=== PATIENT | female | born 1985 | race Caucasian/White ===

== ENCOUNTER 2016-05-18 17:09 | Emergency (ER) | payer SELFPAY ==
[~2016-05-18] VITALS: Ht 165.1 cm; Wt 95.3 kg
[~2016-05-18 17:09] MED LIST: ALPR1TAB2 PO; CETI10TA22 PO; FLUT16SP NS; LEVO500T38 PO; PANT40TA3 PO
[2016-05-18 17:40] VITALS: BP 107/68
--- NOTE | 2016-05-18 18:00 | PHYS DOC ---
Past Medical History Past Medical History: Asthma, GERD Additional Past Medical Histor: PALPITATIONS Past Surgical History: Tubal ligation Alcohol Use: None Drug Use: None Adult General Chief Complaint Chief Complaint: NAUSEA/VOMITING/DIARRHA HPI HPI Patient is a 31 year old female presents with cough, congestion, bodyaches, fever since last night. reports fever to 101.2. States she was sick with similar symptoms on 05/09 but symptoms resolved and returned last night. Denies shortness of air, chest pain. Review of Systems Review of Systems Constitutional: Fever last night Eyes: Denies change in visual acuity, redness, or eye pain HENT: Congestion and sore throat Respiratory: Denies shortness of breath. COugh Cardiovascular: No additional information not addressed in HPI [] GI: Denies abdominal pain, nausea, vomiting, bloody stools or diarrhea [] : Denies dysuria or hematuria [] Musculoskeletal: Denies back pain or joint pain [] Integument: Denies rash or skin lesions [] Neurologic: Denies headache, focal weakness or sensory changes [] Endocrine: Denies polyuria or polydipsia [] Allergies Allergies Allergies Coded Allergies Type Severity Reaction Last Updated Verified Sulfa (Sulfonamide Antibiotics) Allergy Severe ELEVATED HEARTRATE 02/07/14 No amoxicillin Allergy Intermediate RASH 02/07/14 No Physical Exam Physical Exam Constitutional: Well developed, well nourished, no acute distress, non-toxic appearance. Cough on exam HENT: Normocephalic, atraumatic, bilateral external ears normal, oropharynx moist, no oral exudates. Biateral nasal drainage and oropharnyx exudate Eyes: PERRLA, EOMI, conjunctiva normal, no discharge. Neck: Normal range of motion, no tenderness, supple, no stridor. Cardiovascular:Heart rate regular rhythm, no murmur Lungs & Thorax: Bilateral breath sounds clear to auscultation Abdomen: Bowel sounds normal, soft, no tenderness, no masses, no pulsatile masses. Skin: Warm, dry, no erythema, no rash. Back: No tenderness, no CVA tenderness. [] Extremities: No tenderness, no cyanosis, no clubbing, ROM intact, no edema. [] Neurologic: Alert and oriented X 3, normal motor function, normal sensory function, no focal deficits noted. [] Psychologic: Affect normal, judgement normal, mood normal. [] Current Patient Data Vital Signs Vital Signs Date Time Temp Pulse Resp B/P Pulse Ox O2 Delivery O2 Flow Rate FiO2 05/18/16 17:40 98.2 73 20 96 Room Air 98.2 Lab Values Laboratory Tests Test 05/18/16 18:10 Influenza Type A Antigen Negative (NEGATIVE) Influenza Type B Antigen Negative (NEGATIVE) EKG EKG [] Radiology/Procedures Radiology/Procedures [] Impressions: 1. Viral illness Course & Med Decision Making Course & Med Decision Making Pertinent Labs and Imaging studies reviewed. (See chart for details) [] Dragon Disclaimer Dragon Disclaimer This electronic medical record was generated, in whole or in part, using a voice recognition dictation system. Departure Departure Impression: Primary Impression: Viral illness Disposition: HOME, SELF-CARE Condition: STABLE Referrals: UNKNOWN PCP NAME (PCP) Patient Instructions: Viral Infections, [id number] Additional Instructions: 1. Take medication as directed 2. Follow up with primary in 1-2 days 3. Return if problems or concerns Scripts D-Methorphan Hb/Prometh Hcl (Promethazine-Dm Syrup)118 Ml Syrup5 Ml PO PRN Q6HRS PRN COUGH #120 ML Causes drowsiness, use with caution. Do not drink alcohol, drive or operate machinery Prov:NU EUBANKS APRN 05/18/16 Guaifenesin (Mucinex)600 Mg Tablet.er1 Tab PO BID #20 TAB Prov:NU EUBANKS APRN 05/18/16 NU EUBANKS APRN May 18, 2016 18:00
[2016-05-18 18:33] LABS: OBC FLU VALID
[2016-05-18] MEDS ORDERED: GUAI600T38 PO (18:51)
[2016-05-18] MEDS ORDERED: D-ME118S2 PO (18:51)
--- NOTE | 2016-05-19 07:28 | RAD ---
EXAM: Chest, 2 views. HISTORY: Cough. COMPARISON: 10/30/2014. FINDINGS: Frontal and lateral views of the chest are obtained. There is no infiltrate, effusion or pneumothorax. The heart is normal in size. IMPRESSION: 1. No acute pulmonary finding. 2. Note is made that a subcentimeter nodule within the right lower lobe demonstrated on a CT dated 08/14/2014 is not seen radiographically.
== END 2016-05-18 18:56 | disposition home or self-care (01) ==
LOC: ER 17:09
DX: B34.9 Viral infection, unspecified (principal); R05 Cough; J45.909 Unspecified asthma, uncomplicated; K21.9 Gastro-esophageal reflux disease without esophagitis; Z88.1 Allergy status to other antibiotic agents; Z88.2 Allergy status to sulfonamides
CPT/HCPCS: 71020; 87804; 99285

== ENCOUNTER 2017-01-07 22:37 | Emergency (ER) | payer SELFPAY ==
[~2017-01-07] VITALS: Ht 167.6 cm; Wt 87.1 kg
[~2017-01-07 22:37] MED LIST changes: +D-ME118S2 PO; +GUAI600T47 PO; -LEVO500T38 PO; +LEVO500T59 PO; +PRED50TA PO; +PROAIR HFA8.5 GM INH
--- NOTE | 2017-01-07 22:55 | PHYS DOC ---
Past Medical History Past Medical History: Asthma, Bronchitis, GERD Additional Past Medical Histor: PALPITATIONS Past Surgical History: Tubal ligation, Other Additional Past Surgical Histo: ORAL SX Alcohol Use: None Drug Use: None Adult General Chief Complaint Chief Complaint: Congestion HPI HPI Patient is a 31 year old female presents to the emergency department with a 24- hour history of upper respiratory symptoms. And children have the same symptoms. She reports no fever. Really taking foods and fluids, no vomiting, no diarrhea. Nonproductive cough. Patient has been using her albuterol inhaler for management of symptoms Review of Systems Review of Systems Constitutional: Denies fever or chills [] Eyes: Denies change in visual acuity, redness, or eye pain [] HENT: Nasal congestion, bilateral ear pain Respiratory: Cough] Cardiovascular: No additional information not addressed in HPI [] GI: Denies abdominal pain, nausea, vomiting, bloody stools or diarrhea [] : Denies dysuria or hematuria [] Musculoskeletal: Denies back pain or joint pain [] Integument: Denies rash or skin lesions [] Neurologic: Denies headache, focal weakness or sensory changes [] Endocrine: Denies polyuria or polydipsia [] Allergies Allergies Allergies Coded Allergies Type Severity Reaction Last Updated Verified Sulfa (Sulfonamide Antibiotics) Allergy Severe ELEVATED HEARTRATE 02/07/14 No amoxicillin Allergy Intermediate RASH 02/07/14 No Physical Exam Physical Exam Constitutional: Well developed, well nourished, no acute distress, non-toxic appearance. [] HENT: Normocephalic, atraumatic, bilateral external ears normal, oropharynx moist, no oral exudates, nose normal. [] Eyes: PERRLA, EOMI, conjunctiva normal, no discharge. [] Neck: Normal range of motion, no tenderness, supple, no stridor. [] Cardiovascular:Heart rate regular rhythm, no murmur [] Lungs & Thorax: Mild inspiratory wheezing Abdomen: Bowel sounds normal, soft, no tenderness, no masses, no pulsatile masses. [] Skin: Warm, dry, no erythema, no rash. [] Back: No tenderness, no CVA tenderness. [] Extremities: No tenderness, no cyanosis, no clubbing, ROM intact, no edema. [] Neurologic: Alert and oriented X 3, normal motor function, normal sensory function, no focal deficits noted. [] Psychologic: Affect normal, judgement normal, mood normal. [] Current Patient Data Vital Signs Vital Signs Date Time Temp Pulse Resp B/P (MAP) Pulse Ox O2 Delivery O2 Flow Rate FiO2 01/07/17 22:56 98.0 82 18 99 Room Air 98.0 EKG EKG [] Radiology/Procedures Radiology/Procedures [] Course & Med Decision Making Course & Med Decision Making Pertinent Labs and Imaging studies reviewed. (See chart for details) [] Dragon Disclaimer Dragon Disclaimer This electronic medical record was generated, in whole or in part, using a voice recognition dictation system. Departure Departure Impression: Primary Impression: Upper respiratory infection Disposition: HOME, SELF-CARE Condition: STABLE Referrals: SILVESTRE SCHULTZ MD (PCP) Patient Instructions: Upper Respiratory Infection, Adult Scripts Prednisone (PREDNISONE) 20 Mg Tablet 1 TAB PO DAILY, #5 TAB Prov: PRISCILLA CASTRO APRN 01/07/17 Albuterol Sulfate (PROAIR HFA INHALER) 8.5 Gm Hfa.aer.ad 1 PUFF INH PRN Q6HRS Y for SHORTNESS OF BREATH, #1 INHALER 0 Refills Prov: PRISCILLA CASTRO APRN 01/07/17 D-Methorphan Hb/Prometh Hcl (PROMETHAZINE-DM SYRUP) 118 Ml Syrup 5 ML PO PRN Q6HRS Y for COUGH, #120 ML Causes drowsiness, use with caution. Do not drink alcohol, drive or operate machinery Prov: PRISCILLA CASTRO APRN 01/07/17 Problem Qualifiers Primary Impression: Upper respiratory infection URI type: unspecified viral URI Qualified Codes: J06.9 - Acute upper respiratory infection, unspecified; B97.89 - Other viral agents as the cause of diseases classified elsewhere PRISCILLA CASTRO APRN Jan 07, 2017 22:55
[2017-01-07 22:56] VITALS: BP 123/74
[2017-01-07] MEDS ORDERED: D-ME118S2 PO (23:04)
[2017-01-07] MEDS ORDERED: PROAIR HFA8.5 GM INH (23:04)
[2017-01-07] MEDS ORDERED: PRED20TA PO (23:04)
== END 2017-01-07 23:18 | disposition home or self-care (01) ==
LOC: ER 22:55
DX: J06.9 Acute upper respiratory infection, unspecified (principal); B97.89 Other viral agents as the cause of diseases classified elsewhere; J45.909 Unspecified asthma, uncomplicated; K21.9 Gastro-esophageal reflux disease without esophagitis; Z79.899 Other long term (current) drug therapy; Z88.1 Allergy status to other antibiotic agents; Z88.2 Allergy status to sulfonamides
CPT/HCPCS: 99283

== ENCOUNTER 2017-02-25 19:45 | Emergency (ER) | payer SELFPAY ==
[~2017-02-25] VITALS: Ht 170.2 cm; Wt 86.2 kg
[~2017-02-25 19:45] MED LIST changes: +PRED20TA PO
[2017-02-25 19:52] VITALS: BP 139/64
[2017-02-25] MEDS ORDERED: IBUP-1060 PO (20:15)
[2017-02-25] MEDS ORDERED: PRED20TA PO (20:15)
--- NOTE | 2017-02-25 20:16 | PHYS DOC ---
Past Medical History Past Medical History: Asthma, Bronchitis, GERD Additional Past Medical Histor: PALPITATIONS Past Surgical History: Tubal ligation, Other Additional Past Surgical Histo: ORAL SX Alcohol Use: Occasionally Drug Use: None Adult General Chief Complaint Chief Complaint: UPPER EXTREMITY PAIN [facility] HPI Patient is a 32 year old female presents to the emergency department stating that for the last 2 weeks she's been having left arm pain and discomfort with numbness and tingling down to the hands. Patient states that she has tried Tylenol with no relief however she did take a hydrocodone the other day which helped with some of the pain and discomfort. Patient states that when she wakes up sometimes she has increased pain and discomfort into the arm area and into the left back area. Patient states that she has had no trauma no injury to the areas. Patient states that she has not followed up with her primary care physician in regards to the pain and discomfort. Review of Systems Review of Systems Constitutional: Denies fever or chills [] Eyes: Denies change in visual acuity, redness, or eye pain [] HENT: Denies nasal congestion or sore throat [] Respiratory: Denies cough or shortness of breath [] Cardiovascular: No additional information not addressed in HPI [] GI: Denies abdominal pain, nausea, vomiting, bloody stools or diarrhea [] : Denies dysuria or hematuria [] Musculoskeletal: Denies back pain. Complaint of numbness and tingling down to the left arm. Integument: Denies rash or skin lesions [] Neurologic: Denies headache, focal weakness or sensory changes [] Endocrine: Denies polyuria or polydipsia [] Allergies Allergies Allergies Coded Allergies Type Severity Reaction Last Updated Verified Sulfa (Sulfonamide Antibiotics) Allergy Severe ELEVATED HEARTRATE 02/07/14 No amoxicillin Allergy Intermediate RASH 02/07/14 No Physical Exam Physical Exam Constitutional: Well developed, well nourished, no acute distress, non-toxic appearance. [] HENT: Normocephalic, atraumatic, bilateral external ears normal, oropharynx moist, no oral exudates, nose normal. [] Eyes: PERRLA, EOMI, conjunctiva normal, no discharge. [] Neck: Normal range of motion, no tenderness, supple, no stridor. [] Cardiovascular:Heart rate regular rhythm, no murmur [] Lungs & Thorax: Bilateral breath sounds clear to auscultation [] Skin: Warm, dry, no erythema, no rash. [] Back: Patient was noted to have left paraspinal cervical tenderness. Extremities: No tenderness, no cyanosis, no clubbing, ROM intact, no edema. Patient with full range of motion of the left arm and shoulder. Peripheral pulses 2+ cap refill brisk less than 2 seconds good sensation noted equal reconstructive dentist noted bilaterally. No change in temperature in both extremities. Neurologic: Alert and oriented X 3, normal motor function, normal sensory function, no focal deficits noted. [] Psychologic: Affect normal, judgement normal, mood normal. [] Current Patient Data Vital Signs Vital Signs Date Time Temp Pulse Resp B/P (MAP) Pulse Ox O2 Delivery O2 Flow Rate FiO2 02/25/17 19:52 98.0 97 20 99 Room Air 98.0 EKG EKG [] Radiology/Procedures Radiology/Procedures [] Course & Med Decision Making Course & Med Decision Making Pertinent Labs and Imaging studies reviewed. (See chart for details) During assessment patient continued to change her story multiple times is stating she does not have a physician and then she does have a physician. Patient also states that when examination of the neck she originally states that the pain upon palpation caused the same type of pain that she was having down into her left arm. Once treatment regimen was informed to the patient she then states that that had nothing to do with her pain and discomfort down into her arm area. 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 Patient also states that she slept for 6 hours yesterday and woke up with her hand swollen on the left. Patient then states that she has been unable to sleep. She denies any lifting or twisting turning of the arm or shoulder area. I suspect that this is more related to over usage of the arm due to the patient holding her elbow area. Offered patient a sling for the arm to rest the arm in which patient states now that seems to make the pain worse. Patient was instructed that we will encourage ibuprofen 800 mg every 8 hours with food. Patient will also be placed on steroids to help with inflammation. I do not appreciate any swelling into the left arm. Patient was instructed that she would need to follow -up with her primary care physician for further evaluation within the next week. Signs and symptoms to return back to emergency department has been provided. Patient agrees with discharge instructions, treatment regimens and follow-up recommendations. [] Dragon Disclaimer Dragon Disclaimer This electronic medical record was generated, in whole or in part, using a voice recognition dictation system. Departure Departure Impression: Primary Impression: Left arm pain Disposition: HOME, SELF-CARE Condition: STABLE Referrals: NO PCP (PCP) Patient Instructions: Musculoskeletal Pain Additional Instructions: You have been evaluated for left arm pain and discomfort. The symptoms that you' re describing are more of a nerve type pain. This can develop a few have swelling is around the nerve or with muscles that are inflamed. Activity as tolerated. Ibuprofen 800 mg every 8 hours with food stop taking few develop upset stomach. Medication as prescribed. Follow-up with your primary care physician for further evaluation. Return back to emergency department for signs and symptoms of become worse. Scripts Prednisone (PREDNISONE) 20 Mg Tablet 40 MG PO DAILY for 7 Days, #14 TAB Prov: MELBA MCLEAN APRN 02/25/17 Ibuprofen (IBUPROFEN) 800 Mg Tablet 800 MG PO PRN Q6HRS Y for INFLAMMATION, #30 TAB Prov: MELBA MCLEAN APRN 02/25/17 MELBA MCLEAN APRN Feb 25, 2017 20:16
== END 2017-02-25 20:20 | disposition home or self-care (01) ==
LOC: ER 19:45
DX: M79.602 Pain in left arm (principal); R20.0 Anesthesia of skin; R20.2 Paresthesia of skin; J45.909 Unspecified asthma, uncomplicated; K21.9 Gastro-esophageal reflux disease without esophagitis; Z88.2 Allergy status to sulfonamides; Z88.1 Allergy status to other antibiotic agents
CPT/HCPCS: 99283

== ENCOUNTER 2017-06-04 19:14 | Emergency (ER) | payer SELFPAY ==
[2017-06-04] MEDS: IPRATRPIUM/ALBUTEROL 0.5/2.5MG 3 ML NEBU. NEB (20:26)
[2017-06-04 20:35] LABS: INFLUENZA A PATIENT NEGATIVE (NEGATIVE); INFLUENZA B PATIENT NEGATIVE (NEGATIVE); OBC FLU VALID
== END 2017-06-04 20:56 | disposition home or self-care (01) ==
LOC: ER 20:56
DX: S02.5XXA Fracture of tooth (traumatic), initial encounter for closed fracture (principal); J45.909 Unspecified asthma, uncomplicated; K04.7 Periapical abscess without sinus; K21.9 Gastro-esophageal reflux disease without esophagitis; Z98.51 Tubal ligation status; Z88.2 Allergy status to sulfonamides; Z88.1 Allergy status to other antibiotic agents; X58.XXXA Exposure to other specified factors, initial encounter; Y93.89 Activity, other specified; Y92.89 Other specified places as the place of occurrence of the external cause; Y99.8 Other external cause status
CPT/HCPCS: 87804; 87804-59; 94640; 99284-25; J7620

== ENCOUNTER 2020-02-14 19:11 | Emergency (ER) | payer SELFPAY ==
[~2020-02-14] VITALS: Ht 170.2 cm; Wt 84.0 kg
[~2020-02-14 19:11] MED LIST changes: +ALBU2.5V8 INH; -CETI10TA22 PO; +CETI10TA74 PO; +CLIN300C8 PO; -D-ME118S2 PO; +HYDR-3164 PO; +IBUP-1060 PO; -PANT40TA3 PO; +PANT40TA77 PO; -PROAIR HFA8.5 GM INH; +PROM118S10 PO
[2020-02-14 20:25] LABS: BILIRUBIN,URINE NEGATIVE (NEG); CLARITY,URINE CLEAR; COLOR,URINE YELLOW; NITRITE,URINE NEGATIVE (NEG); PH,URINE 6.5 (<5.0-8.0); PROTEIN,URINE NEGATIVE (NEG-TRACE)
[2020-02-14] MEDS ORDERED: PHENAZOPYRIDINE 200 MG TABLET. PO ONE (20:30)
[2020-02-14] MEDS ORDERED: KETOROLAC 60 MG/2 ML VIAL. IM ONE (20:30)
[2020-02-14] MEDS ORDERED: ONDANSETRON ODT 4 MG TAB.RAPDIS. PO ONE ×2 (20:30→22:00)
[2020-02-14 20:36] LABS: BACTERIA,URINE FEW /HPF (0-FEW); RBC,URINE 20-40 /HPF (0-2)
[2020-02-14 20:49] LABS: BASO # 0.1 x10^3/uL (0.0-0.2); BASO % 1 % (0-3); EOS # 0.2 x10^3/uL (0.0-0.7); EOS % 3 % (0-3); HEMOGLOBIN 12.8 g/dL (12.0-15.5); LYMPH # 2.5 x10^3/uL (1.0-4.8); LYMPH % 27 % (24-48); MEAN CORPUSCULAR HEMOGLOBIN 31 pg (25-35); MEAN CORPUSCULAR HGB CONC 35 g/dL (31-37); MEAN CORPUSCULAR VOLUME 90 fL (79-100); MONO # 0.5 x10^3/uL (0.0-1.1); MONO % 5 % (0-9); NEUT % 65 % (31-73); PLATELET COUNT 178 x10^3/uL (140-400); RED BLOOD COUNT 4.13 x10^6/uL (3.50-5.40); RED CELL DISTRIBUTION WIDTH 12.8 % (11.5-14.5); WHITE BLOOD COUNT 9.2 x10^3/uL (4.0-11.0)
--- NOTE | 2020-02-14 20:53 | PHYS DOC ---
Past Medical History Past Medical History: Asthma, Bronchitis, GERD Additional Past Medical Histor: PALPITATIONS Past Surgical History: Tubal ligation, Other Additional Past Surgical Histo: ORAL SX Smoking Status: Current Every Day Smoker Alcohol Use: Occasionally Drug Use: None General Adult EDM: Chief Complaint: VAGINAL BLEEDING HPI: HPI: Patient is a 34-year-old female who presents to the emergency room complaining of dysuria, flank pain, bleeding. Patient initially thought that it was vaginal bleeding, however bleeding only occurred during urination. She states that she initially only had pain with urination and now she is having constant pain. She has never had anything like this before. She did have some flank pain yesterday. She has some nausea without vomiting. She has not had any fever or other abdominal pain. She has not had any vaginal discharge. She does not believe that she could be . Review of Systems: Review of Systems: General: Denies fever, chills, sweats, fatigue Eyes: Denies drainage, blurred vision, eye redness HENT: Denies rhinorrhea, sore throat, earache Respiratory: Denies cough, shortness of breath, wheezing Cardiac: Denies edema, palpitations, chest pain GI: Denies abdominal pain, Nausea, vomiting : Dysuria, urinary frequency, hematuria, pelvic pain MSK: Denies back pain, neck pain Skin: Denies rash, jaundice Neuro: Denies headache, dizziness Psychiatric: Denies SI/HI Heart Score: Risk Factors: Risk Factors: DM, Current or recent (<one month) smoker, HTN, HLP, family history of CAD, obesity. Risk Scores: Score 0 - 3: 2.5% MACE over next 6 weeks - Discharge Home Score 4 - 6: 20.3% MACE over next 6 weeks - Admit for Clinical Observation Score 7 - 10: 72.7% MACE over next 6 weeks - Early Invasive Strategies Current Medications: Current Medications Medications (Trade) Dose Ordered Sig/Sharee Start Time Stop Time Status Last Admin Dose Admin Ketorolac Tromethamine (Toradol Im) 60 mg 1X ONCE 02/14/20 20:30 02/14/20 20:31 DC Ondansetron HCl (Zofran Odt) 4 mg 1X ONCE 02/14/20 20:30 02/14/20 20:31 DC Phenazopyridine HCl (Pyridium) 200 mg 1X ONCE 02/14/20 20:30 106/20 20:31 DC Allergies: Allergies: Allergies Coded Allergies Type Severity Reaction Last Updated Verified Sulfa (Sulfonamide Antibiotics) Allergy Severe ELEVATED HEARTRATE 02/07/14 No amoxicillin Allergy Intermediate RASH 02/07/14 No Physical Exam: PE: General: Awake, alert, NAD. Well Nourished, well hydrated. Cooperative HEENT: Atraumatic, EOMI, PERRL, airway patent, moist oral mucosa Neck: Supple, trachea midline Respiratory: CTA bilaterally, normal effort, no wheezing/crackles CV: RRR, no murmur, cap refill <2 GI: Soft, nondistended, pelvic tenderness, no masses MSK: No obvious deformities Skin: Warm, dry, intact Neuro: A&O x3, speech NL, sensory and motor grossly intact, no focal deficits Psych: Normal affect, normal mood, not suicidal or homicidal Current Patient Data: Labs: Laboratory Tests Test 02/14/20 17:15 02/14/20 19:43 Urine Collection Type Unknown Urine Color Yellow Urine Clarity Clear Urine pH 6.5 (<5.0-8.0) Urine Specific [place] 1.015 (1.000-1.030) Urine Protein Negative mg/dL (NEG-TRACE) Urine Glucose (UA) Negative mg/dL (NEG) Urine Ketones (Stick) Negative mg/dL (NEG) Urine Blood Moderate (NEG) Urine Nitrite Negative (NEG) Urine Bilirubin Negative (NEG) Urine Urobilinogen Dipstick 1.0 mg/dL (0.2 mg/dL) Urine Leukocyte Esterase Trace (NEG) Urine RBC 20-40 /HPF (0-2) Urine WBC 11-20 /HPF (0-4) Urine Squamous Epithelial Cells Few /LPF Urine Bacteria Few /HPF (0-FEW) POC Urine HCG, Qualitative Hcg negative (Negative) Vital Signs: Vital Signs Date Time Temp Pulse Resp B/P (MAP) Pulse Ox O2 Delivery O2 Flow Rate FiO2 02/14/20 19:47 98.4 94 24 116/70 (85) 96 Room Air 98.4 EKG: EKG: [] Radiology/Procedures: Radiology/Procedures: [] Course & Med Decision Making: Course & Med Decision Making Pertinent Labs and Imaging studies reviewed. (See chart for details) Patient is a 34-year-old female presents to the emergency room with hematuria, dysuria, flank pain. This is concerning for possible pyelonephritis versus kidney stone. UA does show some white blood cells and blood. CT abdomen pelvis without contrast will be ordered to evaluate for a kidney stone. Patient will be treated for pyelonephritis. Patient's test results and vitals while in the ED were fully reviewed and discussed with the patient. Patient is stable and at this time does not need admission to the hospital. We have discussed strict return precautions and the importance of following up with their Primary Care Physician. Patient stated understanding and was given an opportunity to ask any questions. Patient is in agreement with plan. Dragon Disclaimer: Dragon Disclaimer: This electronic medical record was generated, in whole or in part, using a voice recognition dictation system. Departure Departure Impression: Primary Impression: Pyelonephritis Disposition: HOME, SELF-CARE Condition: STABLE Referrals: NO PCP (PCP) Patient Instructions: Pyelonephritis, Adult Scripts Cephalexin (KEFLEX) 500 Mg Capsule 1 CAP PO Q12HR for 10 Days, #20 CAP Prov: GERALD AMANDA MD 02/14/20 Phenazopyridine Hcl (PYRIDIUM) 100 Mg Tablet 100 MG PO TID for dysuria, #10 TAB Prov: GERALD AMANDA MD 02/14/20 GERALD AMANDA MD Feb 14, 2020 20:53
--- NOTE | 2020-02-14 21:16 | RAD ---
CT abdomen pelvis without contrast dated 02/14/2020. Comparison made to 08/14/2014. CLINICAL INDICATION: Flank pain and hematuria. TECHNIQUE: Contiguous axial imaging the abdomen pelvis performed without the administration of IV or oral contrast. One or more of the following individualized dose reduction techniques were utilized for this examination: 1. Automated exposure control 2. Adjustment of the mA and/or kV according to patient size 3. Use of iterative reconstruction technique FINDINGS: Limited images of the lung bases show small noncalcified pulmonary nodule in the right lower lobe measuring about 6 mm in size, unchanged. Heart size within normal limits. No pleural or pericardial effusion. Solid abdominal viscera not well evaluated in the absence of contrast material. The liver is of diffuse low density compatible with fatty infiltration. No apparent mass. Biliary tree normal in caliber. Gallbladder is collapsed and not well evaluated. Spleen is upper limits of normal in size. Pancreas, adrenal glands and kidneys are unremarkable. No stone or hydronephrosis. Unopacified GI tract normal in caliber and contour. No focal bowel wall thickening. The appendix is normal in caliber. No ascites or lymphadenopathy. Abdominal aorta normal in caliber. Images of pelvis show nondistended urinary bladder. Uterus and adnexa are unremarkable. No free fluid or lymphadenopathy. Bone windows show no acute findings. Mild lower lumbar spondylosis. Impression: 1. No acute abnormality of abdomen or pelvis. No renal stone or hydronephrosis. 2. Small noncalcified pulmonary nodule in the right lower lobe, nonspecific but unchanged from prior study. 3. Normal appendix. Electronically signed by: Kofi Rushing MD (02/14/2020 9:13 PM) [facility]
[2020-02-14] MEDS ORDERED: CEPH-264 PO (21:45)
[2020-02-14] MEDS ORDERED: PHEN100T82 PO (21:45)
[2020-02-14] MEDS ORDERED: AZITHROMYCIN 250 MG TABLET. PO ONE (22:00)
[2020-02-14] MEDS ORDERED: cefTRIAXone IM 250 MG VIAL IM ONE (22:00)
[2020-02-14] MEDS ORDERED: metroNIDAZOLE 500 MG TABLET PO ONE (22:00)
[2020-02-14 22:30] VITALS: BP 119/72
== END 2020-02-14 22:42 | disposition home or self-care (01) ==
LOC: ER 19:11
DX: N12 Tubulo-interstitial nephritis, not specified as acute or chronic (principal); K21.9 Gastro-esophageal reflux disease without esophagitis; J45.909 Unspecified asthma, uncomplicated; F17.200 Nicotine dependence, unspecified, uncomplicated; Z98.51 Tubal ligation status; Z88.2 Allergy status to sulfonamides; Z88.1 Allergy status to other antibiotic agents
CPT/HCPCS: 36415; 74176; 81001; 81025; 85025; 87491; 87591; 96372; 99285; J0696; J1885

== ENCOUNTER 2020-07-06 18:00 | Emergency (ER) | payer SELFPAY ==
[~2020-07-06] VITALS: Ht 170.2 cm; Wt 114.8 kg
[~2020-07-06 18:00] MED LIST changes: +CEPH-264 PO; -CLIN300C8 PO; +CLIN300C9 PO; +PHEN100T82 PO
[2020-07-06] MEDS ORDERED: IV NORMAL SALINE 1000ML BAG 1,000 ML IV ONE (18:30)
--- NOTE | 2020-07-06 18:38 | PHYS DOC ---
Past Medical History Past Medical History: Asthma, Bronchitis, GERD, Pneumonia Additional Past Medical Histor: PALPITATIONS Past Surgical History: Tubal ligation, Other Additional Past Surgical Histo: ORAL SX Smoking Status: Former Smoker Additional Information: quit smoking 2 years ago Alcohol Use: None Drug Use: None General Adult EDM: Chief Complaint: SHORTNESS OF BREATH HPI: HPI: Patient is a 35 year old female with past medical history of asthma and bronchitis presents for shortness of breath and cough. She states that on June 12 she was at [facility] and diagnosed with pneumonia. She was given doxycycline x10 days and albuterol, both of which she completed the course of. She states that since this time she has still felt very short of breath, had a productive cough with yellow sputum, and had upper back pain with deep breaths. She states that she is a former smoker that quit 2 years ago. She states that nothing has made her cough and shortness of breath better, she has tried her nebulizer treatment at home. Her last treatment was last night at 3 AM. She states that any exertion makes her cough worse. She denies headache, nasal congestion, chest pain, abdominal pain, nausea and vomiting, numbness and tingling, and diarrhea. She states she was febrile once to 100.1 but she has not been febrile since taking the antibiotics. Review of Systems: Review of Systems: Constitutional: Denies fever or chills. [] Eyes: Denies change in visual acuity. [] HENT: Denies nasal congestion or sore throat. [] Respiratory: Positive cough or shortness of breath. [] Cardiovascular: Denies chest pain or edema. [] GI: Denies abdominal pain, nausea, vomiting, bloody stools or diarrhea. [] : Denies dysuria. [] Musculoskeletal: Denies back pain or joint pain. [] Integument: Denies rash. [] Neurologic: Denies headache, focal weakness or sensory changes. [] Endocrine: Denies polyuria or polydipsia. [] Lymphatic: Denies swollen glands. [] Psychiatric: Denies depression or anxiety. [] Heart Score: Risk Factors: Risk Factors: DM, Current or recent (<one month) smoker, HTN, HLP, family history of CAD, obesity. Risk Scores: Score 0 - 3: 2.5% MACE over next 6 weeks - Discharge Home Score 4 - 6: 20.3% MACE over next 6 weeks - Admit for Clinical Observation Score 7 - 10: 72.7% MACE over next 6 weeks - Early Invasive Strategies Current Medications: Current Medications Medications (Trade) Dose Ordered Sig/Sharee Start Time Stop Time Status Last Admin Dose Admin Albuterol Sulfate (Ventolin Neb Soln) 2.5 mg 1X ONCE 07/06/20 19:00 07/06/20 19:01 Methylprednisolone Sodium Succinate (SOLU-Medrol 125MG VIAL) 125 mg 1X ONCE 07/06/20 19:00 07/06/20 19:01 Sodium Chloride 1,000 ml @ 1,000 mls/hr 1X ONCE 07/06/20 18:30 07/06/20 19:29 Allergies: Allergies: Allergies Coded Allergies Type Severity Reaction Last Updated Verified Sulfa (Sulfonamide Antibiotics) Allergy Severe ELEVATED HEARTRATE 07/06/20 No amoxicillin Allergy Intermediate RASH 07/06/20 No Physical Exam: PE: General: alert, no acute distress. Skin: warm, dry and intact. Head:: Normocephalic, atraumatic. Neck: Trachea midline. Eyes: EOMI, Normal conjunctiva, No drainage CARDIOVASCULAR: tachycardia RESPIRATORY: No respiratory distress, wheezy Back: Full range of motion. MUSCULOSKELETAL: Full range of motion of bilateral upper and lower extremities. GASTROINTESTINAL: Abdomen soft without rebound or guarding. NEUROLOGICAL: Alert and noted to person, place and time. No neurological deficits observed Psychiatric: Cooperative. Normal judgment Current Patient Data: Vital Signs: Vital Signs Date Time Temp Pulse Resp B/P (MAP) Pulse Ox O2 Delivery O2 Flow Rate FiO2 07/06/20 18:17 98.1 108 28 142/69 (93) 95 Room Air 98.1 EKG: EKG: [] Radiology/Procedures: Radiology/Procedures: [] Impression: FINDINGS: 2 view of chest obtained. Cardiac silhouette is similar prior. Relative opacity at the lower lungs likely secondary to overlap of soft tissue structures. No definite consolidation is seen elsewhere in the lungs. Fullness of bilateral pulmonary hilum again seen IMPRESSION: * No definite focal airspace consolidation. Electronically signed by: Jimy Melton MD (07/06/2020 7:18 PM) [id number] Course & Med Decision Making: Course & Med Decision Making Pertinent Labs and Imaging studies reviewed. (See chart for details) [] Patient was evaluated for chief complaint. Work up consisted of radiologic imaging and a D-dimer. Initial treatment included albuterol Solu-Medrol and 1 L normal saline. Chest x-ray read by radiologist no focal infiltrates. Patient discharged home with prednisone and Zithromax. Patient advised to follow-up with primary care physician. Jones Disclaimer: Jones Disclaimer: This electronic medical record was generated, in whole or in part, using a voice recognition dictation system. Departure Departure Impression: Primary Impression: Bronchitis Disposition: DC HOME SELF CARE/HOMELESS Condition: STABLE Referrals: NO PCP (PCP) Patient Instructions: Acute Bronchitis Scripts Azithromycin (ZITHROMAX) 250 Mg Tablet 1 PKG PO UD, #6 TAB Prov: YOLY HARRIS DO 07/06/20 Prednisone (PREDNISONE) 50 Mg Tablet 1 TAB PO DAILY, #5 TAB Prov: YOLY HARRIS DO 07/06/20 YOLY HARRIS DO Jul 06, 2020 18:38
[2020-07-06] MEDS ORDERED: methylPREDNISolone SOD SUCC PF 125 MG/2 ML VIAL. IV ONE (19:00)
[2020-07-06] MEDS ORDERED: methylPREDNISolone SOD SUCC PF 125 MG/2 ML VIAL. IM ONE (19:00)
[2020-07-06] MEDS ORDERED: ALBUTEROL SULFATE 2.5 MG/3 ML NEBU. NEB ONE (19:00)
--- NOTE | 2020-07-06 19:21 | RAD ---
INDICATION: Reason: cough / Spl. Instructions: / History: COMPARISON: June 2016 FINDINGS: 2 view of chest obtained. Cardiac silhouette is similar prior. Relative opacity at the lower lungs likely secondary to overlap of soft tissue structures. No definite consolidation is seen elsewhere in the lungs. Fullness of bila teral pulmonary hilum again seen IMPRESSION: * No definite focal airspace consolidation. Electronically signed by: Jimy Melton MD (07/06/2020 7:18 PM) [id number]
[2020-07-06] MEDS ORDERED: PRED50TA PO (19:26)
[2020-07-06] MEDS ORDERED: AZIT250T PO (19:26)
[2020-07-06 19:30] VITALS: BP 125/61
[2020-07-06] MEDS ORDERED: GUAI120L35 PO (19:42)
[2020-07-06] MEDS ORDERED: guaiFENesin/CODEINE 100mg/10mg 5 ML LIQUID PO PRN (19:45)
== END 2020-07-06 20:00 | disposition home or self-care (01) ==
LOC: ER 18:00
DX: J45.909 Unspecified asthma, uncomplicated (principal); K21.9 Gastro-esophageal reflux disease without esophagitis; Z87.891 Personal history of nicotine dependence; Z88.1 Allergy status to other antibiotic agents; Z88.2 Allergy status to sulfonamides
CPT/HCPCS: 36415; 71046; 85379; 94640; 96361; 96374; 99284; J2930; J7030; J7613

== ENCOUNTER 2020-08-30 19:11 | Emergency (ER) | payer SELFPAY ==
[~2020-08-30] VITALS: Ht 165.1 cm; Wt 90.0 kg
[~2020-08-30 19:11] MED LIST changes: +AZIT250T PO; +GUAI120L35 PO
[2020-08-30 19:19] VITALS: BP 138/82
[2020-08-30] MEDS: ACETAMINOPHEN 500 MG TABLET PO ONE (20:23)
--- NOTE | 2020-08-30 20:23 | RAD ---
EXAM: 3 Views Left Shoulder DATE: 08/30/2020 8:17 PM INDICATION: Reason: pain after fall 2 days ago on snow / Spl. Instructions: / History: COMPARISON: No Prior FINDINGS: There is no evidence for acute fracture or dislocation. AC joint is congruent. Humeral head is not hi gh riding. IMPRESSION: 1. No acute fracture or dislocation. Electronically signed by: Satnam Gates MD (08/30/2020 8:21 PM) YELENA
--- NOTE | 2020-08-30 20:24 | RAD ---
EXAM: AP, lateral and radial head views of the left elbow DATE: 08/30/2020 8:17 PM INDICATION: Reason: pain after fall 2 days ago on snow / Spl. Instructions: / History: COMPARISON: No Prior FINDINGS: No elbow joint effusion. No acute fracture or dislocation. Mild soft tissue swelling at the dorsal as pect of the proximal forearm. IMPRESSION: No acute fracture or dislocation. Electronically signed by: Satnam Gates MD (08/30/2020 8:22 PM) YELENA
--- NOTE | 2020-08-30 20:24 | RAD ---
EXAM: 3 views of the left wrist DATE: 08/30/2020 8:17 PM INDICATION: Reason: pain after fall 2 days ago on snow / Spl. Instructions: / History: COMPARISON: No Prior FINDINGS: No acute fracture or dislocation. Joint spaces are preserved without significant degenerative/prolife rative change. Swelling about the left wrist IMPRESSION: 1. No acute fracture or dislocation. 2. Mild swelling about the left wrist. Electronically signed by: Satnam Gates MD (08/30/2020 8:21 PM) YELENA
[2020-08-30] MEDS ORDERED: NAPR-514 PO (20:53)
--- NOTE | 2020-08-30 20:54 | ED.ADGEN ---
Past Medical History Past Medical History: Asthma, Bronchitis, GERD, Pneumonia Additional Past Medical Histor: PALPITATIONS Past Surgical History: Tubal ligation, Other Additional Past Surgical Histo: ORAL SX Smoking Status: Former Smoker Alcohol Use: None Drug Use: None General Adult EDM: Chief Complaint: UPPER EXTREMITY INJURY HPI: HPI: Patient is a 35 year old female who presents emergency department with complaints of pain in her left elbow that radiates to her left shoulder and left wrist after slipping on the snow while walking her dog 2 days ago. Patient complains of swelling and pain that continues to get worse instead of better. S he denies any numbness, tingling, or weakness of the affected extremity. She states that the pain is worse with range of motion and palpation. Patient is dominantly right-handed. She currently rates the pain 8 out of 10 on the pain scale describes as a sharp throbbing sensation that increases with movement or palpation to a 10 out of 10. She reports trying ibuprofen at home with no relief of her pain. Review of Systems: Review of Systems: Complete ROS is negative unless otherwise noted in HPI. Current Medications: Current Medications Medications (Trade) Dose Ordered Sig/Sharee Start Time Stop Time Status Last Admin Dose Admin Acetaminophen (Tylenol) 1,000 mg 1X ONCE 08/30/20 20:00 08/30/20 20:01 DC 08/30/20 20:23 1,000 MG Naproxen (Naprosyn) 500 mg 1X ONCE 08/30/20 21:30 08/30/20 21:11 DC 08/30/20 20:59 500 MG Allergies: Allergies: Allergies Coded Allergies Type Severity Reaction Last Updated Verified Sulfa (Sulfonamide Antibiotics) Allergy Severe ELEVATED HEARTRATE 07/06/20 No amoxicillin Allergy Intermediate RASH 07/06/20 No Physical Exam: PE: See Above Constitutional: Well developed, well nourished, no acute distress, non-toxic appearance. [] HENT: Normocephalic, atraumatic, bilateral external ears normal, nose normal. [] Eyes: PERRLA, EOMI, conjunctiva normal, no discharge. [] Neck: Normal range of motion, no stridor. [] Cardiovascular:Heart rate regular rhythm Lungs & Thorax: Respirations even and unlabored, no retractions, no respiratory distress Skin: Warm, dry, no erythema, no rash. [] Extremities: Left elbow: No obvious deformity, lateral TTP, no crepitus, no cyanosis, ROM limited due to pain, 1+ edema Left shoulder: No obvious deformity, no crepitus, diffuse tenderness to palpation, no cyanosis, ROM limited due to pain, no edema Left wrist: No obvious deformity no crepitus, no edema, nonspecific tenderness to palpation, no cyanosis, ROM intact, cap refill less than 2 seconds, 2+ radial pulse Neurologic: Alert and oriented X 3, normal sensory, no focal deficits noted. [] Psychologic: Affect normal, judgement normal, mood normal. [] Current Patient Data: Vital Signs: Vital Signs Date Time Temp Pulse Resp B/P (MAP) Pulse Ox O2 Delivery O2 Flow Rate FiO2 08/30/20 19:19 97.8 98 18 138/82 (100) 99 Room Air 97.8 EKG: EKG: [] Heart Score: C/O Chest Pain: No Risk Scores: Score 0 - 3: 2.5% MACE over next 6 weeks - Discharge Home Score 4 - 6: 20.3% MACE over next 6 weeks - Admit for Clinical Observation Score 7 - 10: 72.7% MACE over next 6 weeks - Early Invasive Strategies Radiology/Procedures: Radiology/Procedures: PROCEDURE: WRIST 3V LEFT EXAM: 3 views of the left wrist DATE: 08/30/2020 8:17 PM INDICATION: Reason: pain after fall 2 days ago on snow / Spl. Instructions: / History: COMPARISON: No Prior FINDINGS: No acute fracture or dislocation. Joint spaces are preserved without significant degenerative/proliferative change. Swelling about the left wrist IMPRESSION: 1. No acute fracture or dislocation. 2. Mild swelling about the left wrist. Electronically signed by: Satnam Gates MD (08/30/2020 8:21 PM) YELENA[] PROCEDURE: SHOULDER 2+V LEFT EXAM: 3 Views Left Shoulder DATE: 08/30/2020 8:17 PM INDICATION: Reason: pain after fall 2 days ago on snow / Spl. Instructions: / History: COMPARISON: No Prior FINDINGS: There is no evidence for acute fracture or dislocation. AC joint is congruent. Humeral head is not high riding. IMPRESSION: 1. No acute fracture or dislocation. PROCEDURE: ELBOW LEFT 3V EXAM: AP, lateral and radial head views of the left elbow DATE: 08/30/2020 8:17 PM INDICATION: Reason: pain after fall 2 days ago on snow / Spl. Instructions: / History: COMPARISON: No Prior FINDINGS: No elbow joint effusion. No acute fracture or dislocation. Mild soft tissue swelling at the dorsal aspect of the proximal forearm. IMPRESSION: No acute fracture or dislocation. Electronically signed by: Satnam Gates MD (08/30/2020 8:22 PM) [facility] Course & Med Decision Making: Course & Med Decision Making Pertinent Labs and Imaging studies reviewed. (See chart for details) []The patient was seen and interviewed as well as examined at the bedside. The chart was reviewed. The case was discussed. Agree with the plan of care. Dragon Disclaimer: Dragon Disclaimer: This electronic medical record was generated, in whole or in part, using a voice recognition dictation system. Departure Departure Impression: Primary Impression: Left elbow contusion Additional Impressions: Left wrist pain Left shoulder pain Fall on snow Left elbow pain Disposition: HOME / SELF CARE / HOMELESS Condition: STABLE Referrals: SHARIFA CARRILLO MD Patient Instructions: Elbow Contusion, [id number] Additional Instructions: Fill prescription(s) and use as directed. Recommend application of ice, elevati on, and rest of affected extremity. Wear the sling that was placed as needed for comfort, follow-up with Dr. Carrillo for further evaluation next week if symptoms persist. Eeturn to the ER if your symptoms worsen. The patient was seen and interviewed as well as examined at the bedside. The chart was reviewed. The case was discussed. Agree with the plan of care. Scripts Naproxen (NAPROXEN) 500 Mg Tablet 1 TAB PO BID PRN for PAIN for 10 Days, #20 TAB 0 Refills Prov: MARISSA MIN [employer]PL[employer]IV[employer] WORKER 08/30/20 Splinting Splinting : Location: Left arm Pre-Made Type: velcro (Sling) Pre-Proc Neuro Vasc Exam: normal Post-Proc Neuro Vasc Exam: normal, unchanged from pre-exam Problem Qualifiers Primary Impression: Left elbow contusion Encounter type: initial encounter Qualified Codes: S50.02XA - Contusion of left elbow, initial encounter Additional Impressions: Left shoulder pain Chronicity: acute Qualified Codes: M25.512 - Pain in left shoulder Fall on snow Encounter type: initial encounter Qualified Codes: W00.0XXA - Fall on same level due to ice and snow, initial encounter MARISSA MIN APRN Aug 30, 2020 20:54 YOLY HARRIS DO Sep 01, 2020 04:47
[2020-08-30] MEDS: NAPROXEN 500 MG TABLET PO ONE (20:59)
== END 2020-08-30 21:11 | disposition home or self-care (01) ==
LOC: ER 19:11
DX: S50.02XA Contusion of left elbow, initial encounter (principal); M25.512 Pain in left shoulder; M25.522 Pain in left elbow; M25.531 Pain in right wrist; R60.0 Localized edema; J45.909 Unspecified asthma, uncomplicated; K21.9 Gastro-esophageal reflux disease without esophagitis; Z98.51 Tubal ligation status; Z98.890 Other specified postprocedural states; Z87.891 Personal history of nicotine dependence; W00.0XXA Fall on same level due to ice and snow, initial encounter; Y93.89 Activity, other specified; Y92.89 Other specified places as the place of occurrence of the external cause; Y99.8 Other external cause status
CPT/HCPCS: 73030; 73080; 73120; 99284; A4565